=== PATIENT | male | born 1940 | race Two or more races ===

== ENCOUNTER 2024-04-28 08:44 | Inpatient (IN) | payer MEDICARE, OTHER ==
[~2024-04-28] VITALS: Ht 177.8 cm; Wt 84.4 kg
[2024-04-28 09:18] LABS: BASOPHILS % (AUTO) 0.4 % (0.0-2.0); EOSINOPHILS # (AUTO) 0.3 K/uL (0.0-0.7); EOSINOPHILS % (AUTO) 3.1 % (0.0-6.0); HEMATOCRIT 36 % (39-51); HEMOGLOBIN 11.8 g/dL (13.5-17.5); LYMPHOCYTES # (AUTO) 2.4 K/uL (0.8-4.8); LYMPHOCYTES % (AUTO) 27.4 % (20.0-44.0); MEAN CORPUSCULAR HEMOGLOBIN 31 PG (26.0-33.0); MEAN CORPUSCULAR HGB CONC 33 g/dl (31.0-36.0); MEAN CORPUSCULAR VOLUME 95 fL (80-96); MONOCYTES # (AUTO) 0.5 K/uL (0.1-1.30); MONOCYTES % (AUTO) 5.9 % (2.0-12.0); NEUTROPHILS # (AUTO) 5.5 K/uL (1.8-8.9); NEUTROPHILS % (AUTO) 63.2 % (43.0-81.0); PLATELET COUNT (AUTO) 257 K/uL (150-450); RED BLOOD CELL COUNT(AUTO) 3.76 MIL/uL (4.5-6.0); RED CELL DISTRIBUTION WIDTH 13.9 % (11.5-15.0); WHITE BLOOD COUNT (AUTO) 8.7 K/uL (4.3-11.0)
[2024-04-28 09:28] LABS: CALCIUM, SERUM 9.1 mg/dL (8.5-10.1); CARBON DIOXIDE 25 mmol/L (21-32); CHLORIDE 107 mmol/L (98-107); CREATININE 1.3 mg/dL (0.6-1.3); GLUCOSE 147 mg/dL (74-106); POTASSIUM 4.4 mmol/L (3.5-5.1); SODIUM SERUM 141 mmol/L (136-145); UREA NITROGEN, BLOOD 24 mg/dL (7-18)
[2024-04-28] MEDS ORDERED: ACET-2812 PO (11:46)
[2024-04-28] MEDS ORDERED: LINA72CA PO (11:46)
[2024-04-28] MEDS ORDERED: DIPH25TA27 PO (11:46)
[2024-04-28] MEDS ORDERED: ALBU2.5V13 NEB (11:46)
[2024-04-28] MEDS ORDERED: MELA10TA10 PO (11:46)
[2024-04-28] MEDS ORDERED: CARB1DRO7 EACHEYE (11:46)
[2024-04-28] MEDS ORDERED: ALLO100T PO (11:46)
[2024-04-28] MEDS ORDERED: METF-881 PO (11:46)
[2024-04-28] MEDS ORDERED: LOSA100T31 PO (11:46)
[2024-04-28] MEDS ORDERED: DOCU100C36 PO (11:46)
[2024-04-28] MEDS ORDERED: POLY119P3 PO (11:46)
[2024-04-28] MEDS ORDERED: CETI10TA14 PO (11:46)
[2024-04-28] MEDS ORDERED: TIOT4MIS2 INH (11:46)
[2024-04-28] MEDS ORDERED: AMIN30LI25 PO (11:46)
[2024-04-28] MEDS ORDERED: SENN-261 PO (11:46)
[2024-04-28] MEDS ORDERED: PSYL0.5245 PO (11:46)
[2024-04-28] MEDS ORDERED: CRAN300T PO (11:46)
[2024-04-28] MEDS ORDERED: CYAN-51 PO (11:46)
[2024-04-28] MEDS ORDERED: DICL100G34 TP (11:46)
[2024-04-28] MEDS ORDERED: FLUT1BLS15 IH (11:46)
[2024-04-28] MEDS ORDERED: FURO20TA4 PO (11:46)
[2024-04-28] MEDS ORDERED: CHOL4PAC PO (11:46)
[2024-04-28] MEDS ORDERED: GLIP10TA21 PO (11:46)
[2024-04-28] MEDS ORDERED: BENZ-38 PO (11:46)
[2024-04-28] MEDS ORDERED: LACT10SO68 PO (11:46)
[2024-04-28] MEDS ORDERED: TAMS-12 PO (11:46)
[2024-04-28] MEDS ORDERED: DEXTROSE 50%-WATER 50 ML DISP.SYRIN IV PRN (15:00)
[2024-04-28] MEDS ORDERED: DICLOFENAC TOPICAL 100 GM TUBE TP PRN (15:00)
[2024-04-28] MEDS ORDERED: ACETAMINOPHEN 325 MG TABLET PO PRN (15:00)
[2024-04-28] MEDS ORDERED: Z GUARD REMEDY 4 OZ OINT TP PRN (15:00)
[2024-04-28] MEDS ORDERED: IV 1/2NS 1000 ML 1,000 ML IV PRN (15:00)
[2024-04-28] MEDS ORDERED: ALBUTEROL FS 2.5 MG/3 ML VIAL.NEB NEB PRN (15:00)
[2024-04-28] MEDS ORDERED: ONDANSETRON HCL/PF 4 MG/2 ML VIAL IVP PRN (15:00)
[2024-04-28] MEDS ORDERED: NITROGLYCERIN 0.4 MG/TAB BOTTLE SL PRN (15:00)
[2024-04-28] MEDS: LOSARTAN POTASSIUM 50 MG TABLET PO SCH (15:22)
[2024-04-28] MEDS ORDERED: IOHEXOL-300 100 ML VIAL IV ONE (15:49)
[2024-04-28] MEDS ORDERED: IV NS 0.9% 250 ML IV ONE (15:50)
[2024-04-28] MEDS ORDERED: CT SWABBABLE VALVE TRANS SET 1 EA INFUS.SET MC ONE (15:50)
[2024-04-28] MEDS ORDERED: FLUTICASONE/SALMETEROL 1 DISK IH SCH (17:00)
[2024-04-28] MEDS: BLOOD SUGAR DIAGNOSTIC 1 EACH STRIP IN SCH (17:13)
[2024-04-28] MEDS: INSULIN REGULAR, HUMAN 100 UNIT/ML 3 ML VIAL SQ PRN (17:14)
[2024-04-28] MEDS: BUDESONIDE RESPULE INH 0.5 MG/2 ML AMPUL.NEB NEB SCH (17:32)
[2024-04-28] MEDS: CHOLESTYRAMINE/ASPARTAME 4 G/PKT PACKET PO SCH (17:53)
[2024-04-28] MEDS: TAMSULOSIN 0.4 MG CAP.SR.24H PO SCH (17:53)
[2024-04-28 18:23] VITALS: BP 158/75
[2024-04-28 20:00] VITALS: BP 162/57; TEMP 97.7; O2SAT 100
[2024-04-28 20:27] VITALS: O2SAT 97
[2024-04-28] MEDS: ALBUTEROL FS 2.5 MG/3 ML VIAL.NEB NEB SCH (20:27)
[2024-04-28 20:37] VITALS: O2SAT 100
[2024-04-28] MEDS: ENOXAPARIN SODIUM 40 MG/0.4 ML DISP.SYRIN SQ SCH (22:19)
[2024-04-28] MEDS: MAGNESIUM HYDROXIDE 30 ML UDC PO PRN (23:17)
[2024-04-29] VITALS (13 sets, daily range): BP systolic 157–178; BP diastolic 60–74; TEMP 98.1–98.8; O2SAT 97–100
[2024-04-29 06:36] LABS: BASOPHILS % (AUTO) 0.5 % (0.0-2.0); EOSINOPHILS # (AUTO) 0.4 K/uL (0.0-0.7); EOSINOPHILS % (AUTO) 6.4 % (0.0-6.0); HEMATOCRIT 34 % (39-51); HEMOGLOBIN 11.6 g/dL (13.5-17.5); LYMPHOCYTES # (AUTO) 2.6 K/uL (0.8-4.8); LYMPHOCYTES % (AUTO) 37.6 % (20.0-44.0); MEAN CORPUSCULAR HEMOGLOBIN 32 PG (26.0-33.0); MEAN CORPUSCULAR HGB CONC 34 g/dl (31.0-36.0); MEAN CORPUSCULAR VOLUME 94 fL (80-96); MONOCYTES # (AUTO) 0.5 K/uL (0.1-1.30); MONOCYTES % (AUTO) 6.8 % (2.0-12.0); NEUTROPHILS # (AUTO) 3.3 K/uL (1.8-8.9); NEUTROPHILS % (AUTO) 48.7 % (43.0-81.0); PLATELET COUNT (AUTO) 262 K/uL (150-450); RED BLOOD CELL COUNT(AUTO) 3.62 MIL/uL (4.5-6.0); RED CELL DISTRIBUTION WIDTH 13.8 % (11.5-15.0); WHITE BLOOD COUNT (AUTO) 6.8 K/uL (4.3-11.0)
[2024-04-29 06:41] LABS: CALCIUM, SERUM 9.4 mg/dL (8.5-10.1); CARBON DIOXIDE 27 mmol/L (21-32); CHLORIDE 106 mmol/L (98-107); CREATININE 1.3 mg/dL (0.6-1.3); GLUCOSE 142 mg/dL (74-106); MAGNESIUM 2.4 mg/dL (1.8-2.4); PHOSPHORUS 3.7 mg/dL (2.5-4.9); POTASSIUM 4.7 mmol/L (3.5-5.1); SODIUM SERUM 140 mmol/L (136-145); UREA NITROGEN, BLOOD 24 mg/dL (7-18)
[2024-04-29 07:12] LABS: ALBUMIN 3.4 g/dL (3.4-5.0); BILIRUBIN,TOTAL 0.2 mg/dL (0.2-1.0); CHOLESTEROL 168 mg/dL (<200); HDL CHOLESTEROL 43 mg/dL (40-60); LDL 100 mg/dL (0-99); TOTAL PROTEIN, SERUM 7.2 g/dL (6.4-8.2); TRIGLYCERIDES 196 mg/dL (30-150)
[2024-04-29] MEDS: PANTOPRAZOLE 40 MG TABLET.DR PO SCH (07:40)
[2024-04-29 08:04] LABS: IRON, SERUM 58 ug/dl (50-175); TOTAL IRON BINDING CAPACITY 242 ug/dl (250-450)
[2024-04-29] MEDS: VALSARTAN 80 MG TABLET PO SCH (08:28)
[2024-04-29] MEDS: DOCUSATE SODIUM 100 MG CAPSULE PO SCH (08:28)
[2024-04-29] MEDS: ALLOPURINOL 100 MG TABLET PO SCH (08:28)
[2024-04-29] MEDS: cetrizine 10 MG TABLET PO SCH (08:28)
[2024-04-29] MEDS: ATORVASTATIN 10 MG TABLET PO SCH (08:28)
[2024-04-29] MEDS: ASPIRIN EC 81 MG TABLET.DR PO SCH (08:28)
[2024-04-29 08:42] LABS: FERRITIN 108 ng/mL (8-388)
[2024-04-29] MEDS ORDERED: FUROSEMIDE 20 MG TABLET PO SCH (09:00)
[2024-04-29] MEDS: IV NS 0.9% 1,000 ML IV PRN (10:48)
[2024-04-29] MEDS: LACTULOSE 10 G/15 ML UDC (PYXIS) PO PRN (18:21)
[2024-04-29] MEDS: POLYETHYLENE GLYCOL 3350 17 GM POWD.PACK PO PRN (18:21)
[2024-04-30] VITALS (12 sets, daily range): BP systolic 153–179; BP diastolic 65–74; TEMP 97.5–97.8; O2SAT 95–100
[2024-04-30 07:56] LABS: BASOPHILS % (AUTO) 0.6 % (0.0-2.0); EOSINOPHILS # (AUTO) 0.5 K/uL (0.0-0.7); EOSINOPHILS % (AUTO) 6.6 % (0.0-6.0); HEMATOCRIT 34 % (39-51); HEMOGLOBIN 11.4 g/dL (13.5-17.5); LYMPHOCYTES # (AUTO) 2.7 K/uL (0.8-4.8); LYMPHOCYTES % (AUTO) 34.3 % (20.0-44.0); MEAN CORPUSCULAR HEMOGLOBIN 32 PG (26.0-33.0); MEAN CORPUSCULAR HGB CONC 33 g/dl (31.0-36.0); MEAN CORPUSCULAR VOLUME 95 fL (80-96); MONOCYTES # (AUTO) 0.5 K/uL (0.1-1.30); MONOCYTES % (AUTO) 6.5 % (2.0-12.0); PLATELET COUNT (AUTO) 262 K/uL (150-450); RED CELL DISTRIBUTION WIDTH 13.6 % (11.5-15.0); WHITE BLOOD COUNT (AUTO) 7.8 K/uL (4.3-11.0)
[2024-04-30] MEDS: MINERAL OIL 133 ML (PYXIS) 1 EA ENEMA RC ONE (08:30)
[2024-04-30 08:48] LABS: CALCIUM, SERUM 8.7 mg/dL (8.5-10.1); CARBON DIOXIDE 22 mmol/L (21-32); CHLORIDE 109 mmol/L (98-107); CREATININE 1.4 mg/dL (0.6-1.3); GLUCOSE 147 mg/dL (74-106); MAGNESIUM 2.3 mg/dL (1.8-2.4); PHOSPHORUS 3.2 mg/dL (2.5-4.9); POTASSIUM 4.7 mmol/L (3.5-5.1); SODIUM SERUM 142 mmol/L (136-145); UREA NITROGEN, BLOOD 23 mg/dL (7-18)
[2024-04-30] MEDS: Fenofibrate 48 MG TABLET PO SCH (09:05)
[2024-04-30] MEDS: AMLODIPINE BESYLATE 5 MG TABLET PO SCH (09:06)
[2024-04-30] MEDS ORDERED: METOPROLOL TARTRATE INJ 5 MG/5 ML AMPUL IVP PRN (10:30)
[2024-04-30] MEDS ORDERED: CT SWABBABLE VALVE TRANS SET 1 EA INFUS.SET MC ONE (10:34)
[2024-04-30] MEDS ORDERED: IOHEXOL-350 100 ML VIAL IV ONE (10:34)
[2024-04-30] MEDS ORDERED: IV NS 0.9% 250 ML IV ONE (10:34)
[2024-04-30] MEDS ORDERED: NITROGLYCERIN 0.4 MG/TAB BOTTLE ONE (10:43)
[2024-04-30] MEDS ORDERED: METOPROLOL TARTRATE INJ 5 MG/5 ML AMPUL ONE (10:43)
[2024-04-30] MEDS: NITROGLYCERIN 0.4 MG/TAB BOTTLE SL ONE (10:49)
[2024-04-30 10:52] LABS: APPEARANCE,URINE CLEAR (CLEAR); BILIRUBIN,URINE NEGATIVE (NEGATIVE); BLOOD, URINE TRACE-INTA Ery/uL (NEGATIVE); KETONES,URINE NEGATIVE (NEGATIVE); LEUKOCYTE ESTERASE ,URINE NEGATIVE (NEGATIVE); NITRITE, URINE NEGATIVE (NEGATIVE); PROTEIN,URINE 1+ mg/dl (NEGATIVE); UGLUCOSE TRACE mg/dL (NEGATIVE); UROBILINOGEN,URINE 0.2 EU/dL (0.2)
[2024-04-30 11:05] LABS: ADD URINE CULTURE NO; BACTERIA,URINE Rare /HPF (None Seen); MUCUS,URINE Rare /LPF (None Seen); RBC,URINE 0-2 /HPF (0-2); SQUAMOUS EPITHELIAL CELL,UR 0-2 /HPF (None Seen); WBC,URINE 0-2 /HPF (0-3)
[2024-04-30 11:29] LABS: CREATININE, URINE 43.7 MG/DL (30.0-125.0); URINE TOTAL PROTEIN 55.8 mg/dL (0-11.9)
[2024-04-30] MEDS: LOSARTAN POTASSIUM 50 MG TABLET PO SCH (11:58)
[2024-04-30 13:38] LABS: COLOR,URINE LIGHT YELLOW (YELLOW)
[2024-04-30 13:39] LABS: EOSINOPHIL,URINE None Seen
[2024-04-30] MEDS ORDERED: ASPI-1420 PO (15:42)
[2024-04-30] MEDS ORDERED: FENO43CA6 PO (15:42)
[2024-04-30] MEDS ORDERED: ATOR20TA PO (15:42)
[2024-04-30] MEDS ORDERED: BISA10SU61 RC (15:59)
== END 2024-04-30 17:15 | DRG 311 ==
LOC: ER 08:51 → TELE 12:48
PROVIDERS: ADMIT Nurse Practitioner Family; ATTEND Nurse Practitioner Family
DX: I20.0 Unstable angina (principal); N17.9 Acute kidney failure, unspecified; R10.9 Unspecified abdominal pain; D64.9 Anemia, unspecified; M19.90 Unspecified osteoarthritis, unspecified site; J44.9 Chronic obstructive pulmonary disease, unspecified; N40.0 Benign prostatic hyperplasia without lower urinary tract symptoms; K80.20 Calculus of gallbladder without cholecystitis without obstruction; Z79.84 Long term (current) use of oral hypoglycemic drugs; I10 Essential (primary) hypertension; Z20.822 Contact with and (suspected) exposure to COVID-19; E11.9 Type 2 diabetes mellitus without complications
CPT/HCPCS: 36415; 71045-TC; 75574; 80048-TC; 80061-TC; 80076-TC; 81001; 82570-TC; 82728-TC; 82962-TC; 83540-TC; 83735-TC; 83880; 84100-TC; 84300-TC; 84484-TC; 85025-TC; 93307-TC; 93971-TC; 94761-TC; 94799-TC; G0378; J1650; J1815; J3490; J7030; J7050; Q9967

== ENCOUNTER 2025-04-24 09:22 | Inpatient (IN) | payer MEDICARE, OTHER ==
[~2025-04-24] VITALS: Ht 172.7 cm; Wt 90.4 kg
[~2025-04-24 09:22] MED LIST: ACET-2812 PO; ALBU2.5V13 NEB; ALLO100T PO; AMIN30LI25 PO; ASPI-1420 PO; ATOR20TA PO; BENZ-38 PO; BISA10SU61 RC; CARB1DRO7 EACHEYE; CETI10TA14 PO; CHOL4PAC PO; CRAN300T PO; CYAN-51 PO; DICL100G34 TP; DIPH25TA27 PO; DOCU100C36 PO; FENO43CA6 PO; FLUT1BLS15 IH; FURO20TA4 PO; GLIP10TA21 PO; LACT10SO68 PO; LINA72CA PO; LOSA100T31 PO; MELA10TA10 PO; METF-881 PO; POLY119P3 PO; PSYL0.5245 PO; SENN-261 PO; TAMS-12 PO; TIOT4MIS2 INH
[2025-04-24] MEDS: IV NS 0.9% 1,000 ML BAG IV ONE ×2 (09:30→10:32)
[2025-04-24 10:05] LABS: PLATELET COUNT (AUTO) 248 K/uL (150-450); RED BLOOD CELL COUNT(AUTO) 3.39 MIL/uL (4.5-6.0); RED CELL DISTRIBUTION WIDTH 13.9 % (11.5-15.0); WHITE BLOOD COUNT (AUTO) 14.9 K/uL (4.3-11.0)
[2025-04-24] MEDS ORDERED: ACET-637 PO (10:10)
[2025-04-24] MEDS ORDERED: ASPI-1420 PO (10:10)
[2025-04-24] MEDS ORDERED: UMEC62.5 INH (10:10)
[2025-04-24] MEDS ORDERED: MELO-105 PO (10:10)
[2025-04-24] MEDS ORDERED: GLIP5TAB26 PO (10:10)
[2025-04-24] MEDS ORDERED: ATOR20TA PO (10:10)
[2025-04-24] MEDS ORDERED: VALS160T29 PO (10:10)
[2025-04-24] MEDS ORDERED: ALBU8.5H8 IH (10:10)
[2025-04-24] MEDS ORDERED: TRAM50TA2 PO (10:10)
[2025-04-24] MEDS ORDERED: VALS80TA31 PO (10:10)
[2025-04-24] MEDS ORDERED: GUAI1TBM19 PO (10:10)
[2025-04-24] MEDS ORDERED: AMLO-212 PO (10:10)
[2025-04-24] MEDS ORDERED: MAGN400T52 PO (10:10)
[2025-04-24 10:13] LABS: CALCIUM, SERUM 9.0 mg/dL (8.5-10.1); CREATININE 1.7 mg/dL (0.6-1.3); SERUM AMMONIA 9 umol/L (11-32); SODIUM SERUM 136 mmol/L (136-145); UREA NITROGEN, BLOOD 35 mg/dL (7-18)
[2025-04-24 10:19] LABS: ASPARTATE AMINOTRANSFERASE 9 U/L (15-37); TOTAL PROTEIN, SERUM 7.2 g/dL (6.4-8.2)
[2025-04-24 10:20] LABS: ALCOHOL, BLOOD < 3 mg/dL (0-10)
[2025-04-24 10:21] LABS: LACTIC ACID 1.8 mmol/L (0.4-2.0)
[2025-04-24 10:26] LABS: INR 0.97 (0.91-1.10)
[2025-04-24] MEDS ORDERED: ACETAMINOPHEN 325 MG TABLET ONE (10:28)
[2025-04-24] MEDS: ACETAMINOPHEN 325 MG TABLET PO ONE (10:33)
[2025-04-24] MEDS ORDERED: TEMAZEPAM 15 MG CAPSULE PO PRN (11:00)
[2025-04-24] MEDS ORDERED: Z GUARD REMEDY 4 OZ OINT TP PRN (11:00)
[2025-04-24] MEDS ORDERED: MAG HYDROX/AL HYDROX/SIMETH 30 ML UDC PO PRN (11:00)
[2025-04-24] MEDS ORDERED: HYDROCODONE/APAP 5/325MG TABLET PO PRN (11:00)
[2025-04-24] MEDS ORDERED: DEXTROSE 50%-WATER 50 ML DISP.SYRIN IV PRN (11:00)
[2025-04-24] MEDS ORDERED: ONDANSETRON HCL/PF 4 MG/2 ML VIAL IVP PRN (11:00)
[2025-04-24] MEDS ORDERED: MAGNESIUM HYDROXIDE 30 ML UDC PO PRN (11:00)
[2025-04-24] MEDS ORDERED: DOSING PER PHARMACY-CEFEPIME IVPB XX PRN (11:00)
[2025-04-24] MEDS ORDERED: LEVOFLOXACIN 750 MG /D5W 150ML 150 ML IV ONE (11:07)
[2025-04-24] MEDS: LEVOFLOXACIN 750 MG /D5W 150ML 150 ML IV ONE (11:19)
[2025-04-24] MEDS: BLOOD SUGAR DIAGNOSTIC 1 EACH STRIP IN SCH (12:54)
[2025-04-24 13:12] LABS: APPEARANCE,URINE CLEAR (CLEAR); BLOOD, URINE Moderate Ery/uL (NEGATIVE); LEUKOCYTE ESTERASE ,URINE Negative (NEGATIVE); UGLUCOSE 250 MG/DL mg/dL (NEGATIVE)
[2025-04-24 13:16] LABS: NITRITE, URINE POSITIVE (NEGATIVE)
[2025-04-24 13:22] LABS: ADD URINE CULTURE YES; SQUAMOUS EPITHELIAL CELL,UR None Seen /HPF (None Seen)
[2025-04-24 13:24] LABS: AMPHETAMINE, URINE NEGATIVE (NEGATIVE); BARBITURATE, URINE NEGATIVE (NEGATIVE); BENZODIAZEPINE, URINE NEGATIVE (NEGATIVE); CANNABINOID, URINE NEGATIVE (NEGATIVE); COCCAINE, URINE NEGATIVE (NEGATIVE)
[2025-04-24] MEDS: CEFEPIME 2 GM in IV D5W 100 ML IV SCH (13:24)
[2025-04-24 13:25] LABS: OPIATE, URINE POSITIVE (NEGATIVE)
[2025-04-24 16:00] VITALS: BP 147/57; TEMP 98.2; O2SAT 99
[2025-04-24] MEDS: IV NS 0.9% 1,000 ML IV PRN (17:09)
[2025-04-24] MEDS: ACETAMINOPHEN 325 MG TABLET PO PRN (17:26)
[2025-04-24] MEDS: INSULIN REGULAR, HUMAN 100 UNIT/ML 3 ML VIAL SQ PRN (17:27)
[2025-04-24 20:00] VITALS: BP 125/53; TEMP 98.1; O2SAT 98
[2025-04-24 20:46] VITALS: BP 125/53; TEMP 98.1; O2SAT 98
[2025-04-25] VITALS (7 sets, daily range): BP systolic 128–143; BP diastolic 47–73; TEMP 97.7–99.1; O2SAT 92–98
[2025-04-25 06:59] LABS: PLATELET COUNT (AUTO) 181 K/uL (150-450); RED BLOOD CELL COUNT(AUTO) 2.92 MIL/uL (4.5-6.0); RED CELL DISTRIBUTION WIDTH 13.5 % (11.5-15.0); WHITE BLOOD COUNT (AUTO) 16.2 K/uL (4.3-11.0)
[2025-04-25 07:17] LABS: CALCIUM, SERUM 8.1 mg/dL (8.5-10.1); CREATININE 1.4 mg/dL (0.6-1.3); PHOSPHORUS 2.1 mg/dL (2.5-4.9); SODIUM SERUM 137.0 mmol/L (136-145); UREA NITROGEN, BLOOD 28.0 mg/dL (7-18)
[2025-04-25 07:21] LABS: LDL 39.0 mg/dL (0-99)
[2025-04-25] MEDS: PANTOPRAZOLE 40 MG TABLET.DR PO SCH (07:54)
[2025-04-25] MEDS: K PHOS NEUTRAL 250 MG TABLET PO ONE (16:43)
[2025-04-25 17:44] LABS: CREATININE, URINE 89.5 MG/DL (30.0-125.0); URINE SODIUM, RANDOM 85.0 mmol/l (40-220); URINE TOTAL PROTEIN 206.3 mg/dL (0-11.9)
[2025-04-25] MEDS: ATORVASTATIN 10 MG TABLET PO SCH (21:05)
[2025-04-25] MEDS: IPRATROPIUM NEB FS 0.5 MG/2.5 ML AMPUL.NEB NEB PRN (22:02)
[2025-04-25] MEDS: ALBUTEROL FS 2.5 MG/3 ML VIAL.NEB NEB PRN (22:02)
[2025-04-26] VITALS (10 sets, daily range): BP systolic 132–200; BP diastolic 53–85; TEMP 97.5–98.9; O2SAT 96–99
[2025-04-26 07:03] LABS: PLATELET COUNT (AUTO) 199 K/uL (150-450); RED BLOOD CELL COUNT(AUTO) 3.10 MIL/uL (4.5-6.0); RED CELL DISTRIBUTION WIDTH 13.4 % (11.5-15.0); WHITE BLOOD COUNT (AUTO) 11.0 K/uL (4.3-11.0)
[2025-04-26 07:14] LABS: ASPARTATE AMINOTRANSFERASE 12.0 U/L (15-37); CALCIUM, SERUM 8.7 mg/dL (8.5-10.1); CREATINE KINASE, TOTAL 98.0 U/L (39-308); CREATININE 1.4 mg/dL (0.6-1.3); PHOSPHORUS 2.8 mg/dL (2.5-4.9); SODIUM SERUM 136.0 mmol/L (136-145); TOTAL PROTEIN, SERUM 6.4 g/dL (6.4-8.2); UREA NITROGEN, BLOOD 24.0 mg/dL (7-18)
[2025-04-26] MEDS: MAGNESIUM OXIDE 400 MG TABLET PO SCH (08:49)
[2025-04-26] MEDS: MELOXICAM 7.5 MG TABLET PO SCH (08:50)
[2025-04-26] MEDS: DOCUSATE SODIUM 100 MG CAPSULE PO SCH (08:50)
[2025-04-26] MEDS: CYANOCOBALAMIN 500 MCG TABLET PO SCH (08:51)
[2025-04-26] MEDS: POLYETHYLENE GLYCOL 3350 17 GM POWD.PACK PO SCH (08:51)
[2025-04-26] MEDS: ALLOPURINOL 100 MG TABLET PO SCH (08:51)
[2025-04-26] MEDS: ASPIRIN EC 81 MG TABLET.DR PO SCH (08:51)
[2025-04-26] MEDS: PSYLLIUM SEED 1 PKT PACKET PO SCH (08:52)
[2025-04-26] MEDS: CARBOXYMETHYLCELLULOSE SODIUM 1 EA TUBE EACHEYE SCH (08:55)
[2025-04-26] MEDS: AMLODIPINE BESYLATE 5 MG TABLET PO SCH (09:00)
[2025-04-26] MEDS ORDERED: Medication Not On Formulary EA (Linaclotide (Linzess) 72 MCG) PO SCH (09:00)
[2025-04-26] MEDS: TAMSULOSIN 0.4 MG CAP.SR.24H PO SCH (17:48)
[2025-04-26] MEDS: GUAIFENESIN/D-METHORPHAN HB 5 ML UDC PO PRN (21:41)
[2025-04-27] VITALS: BP 154/71; TEMP 98.4; O2SAT 96
[2025-04-27 04:00] VITALS: BP 144/84; TEMP 98.6; O2SAT 100
[2025-04-27 07:07] LABS: PTH, INTACT 35 pg/mL (15-65)
[2025-04-27 07:12] LABS: CALCIUM, SERUM 9.2 mg/dL (8.5-10.1); CREATININE 1.3 mg/dL (0.6-1.3); SODIUM SERUM 137.0 mmol/L (136-145); UREA NITROGEN, BLOOD 19.0 mg/dL (7-18)
[2025-04-27 08:00] VITALS: BP 181/76; TEMP 98.4; O2SAT 99
[2025-04-27 09:18] VITALS: BP 132/84
[2025-04-27] MEDS: CEFTRIAXONE 1 G in IV D5W 50 ML IV SCH (10:58)
== END 2025-04-27 15:04 | DRG 193 ==
LOC: ER 09:26 → TELE 13:52
PROVIDERS: ADMIT Nurse Practitioner Acute Care; ATTEND Nurse Practitioner Acute Care
DX: J15.9 Unspecified bacterial pneumonia (principal); G92.8 Other toxic encephalopathy; N17.0 Acute kidney failure with tubular necrosis; J44.0 Chronic obstructive pulmonary disease with (acute) lower respiratory infection; N39.0 Urinary tract infection, site not specified; E78.5 Hyperlipidemia, unspecified; N40.0 Benign prostatic hyperplasia without lower urinary tract symptoms; D64.9 Anemia, unspecified; E86.0 Dehydration; N18.9 Chronic kidney disease, unspecified; Z20.822 Contact with and (suspected) exposure to COVID-19; F03.90 Unspecified dementia, unspecified severity, without behavioral disturbance, psychotic disturbance, mood disturbance, and anxiety; E11.22 Type 2 diabetes mellitus with diabetic chronic kidney disease; I12.9 Hypertensive chronic kidney disease with stage 1 through stage 4 chronic kidney disease, or unspecified chronic kidney disease; R32 Unspecified urinary incontinence; E83.89 Other disorders of mineral metabolism; D72.829 Elevated white blood cell count, unspecified; B96.89 Other specified bacterial agents as the cause of diseases classified elsewhere; R53.1 Weakness; Z79.84 Long term (current) use of oral hypoglycemic drugs
CPT/HCPCS: 36415; 70450-TC; 71045-TC; 76770-TC; 80048-TC; 80053-TC; 80061-TC; 80076-TC; 81001; 82140-TC; 82550-TC; 82570-TC; 82962-TC; 83605-TC; 83735-TC; 83970; 84100-TC; 84155; 84165; 84300-TC; 84443-TC; 84484-TC; 85025-TC; 85730-TC; 87040-TC; 87081-TC; 87086-TC; 97110-TC; 97116-TC; 97530-TC; 97535-TC; A4223; G0378; G0480; J0692; J0696; J1815; J1956; J7030; J7040; J7060